=== PATIENT | female | born 1945 | race African-American/Black ===

== ENCOUNTER 2016-09-22 15:19 | Emergency (ER) | payer MEDICARE, OTHER ==
[2016-09-22] MEDS ORDERED: CEFTRIAXONE 1 GM VIAL ONE (19:38)
[2016-09-22] MEDS ORDERED: SODIUM CHLORIDE 0.9% 500 ML IV ONE (19:38)
[2016-09-22] MEDS ORDERED: SODIUM CHLORIDE 0.9% 100 ML IV ONE (19:38)
== END 2016-09-22 22:34 | disposition home or self-care (01) ==
LOC: ER 15:19
DX: N30.01 Acute cystitis with hematuria (principal); Z79.899 Other long term (current) drug therapy; I10 Essential (primary) hypertension; E10.9 Type 1 diabetes mellitus without complications; I25.10 Atherosclerotic heart disease of native coronary artery without angina pectoris; Z86.73 Personal history of transient ischemic attack (TIA), and cerebral infarction without residual deficits
CPT/HCPCS: 36415; 70450; 71010; 80053; 80061; 81001; 82553; 82947; 84484; 85025; 85384; 85610; 85730; 87077; 87088; 87186; 93005; 96361; 96365; 99285; J0696; J7040; J7050